=== PATIENT | male | born 1965 | race Caucasian/White ===

== ENCOUNTER 2017-11-24 04:41 | Emergency (ER) | payer MEDICAID ==
[~2017-11-24] VITALS: Ht 188 cm; Wt 113.0 kg
[2017-11-24 04:48] VITALS: BP 152/87
== END 2017-11-24 08:20 | disposition left against medical advice (07) ==
LOC: ER 04:41
DX: Z04.8 Encounter for examination and observation for other specified reasons (principal); Z53.21 Procedure and treatment not carried out due to patient leaving prior to being seen by health care provider

== ENCOUNTER 2019-08-08 03:52 | Emergency (ER) | payer MEDICAID ==
[~2019-08-08] VITALS: Ht 175.3 cm; Wt 113.0 kg
[2019-08-08] MEDS ORDERED: SODIUM CHLORIDE 0.9% 1,000 ML IV ONE (04:25)
[2019-08-08] MEDS ORDERED: LORAZEPAM 2MG/ML CPJ IV ONE (04:30)
[2019-08-08 04:46] LABS: BASOPHILS % 0.4 % (0.0-2.0); EOSINOPHILS % 0.4 % (0.0-5.0); HEMATOCRIT. 40.6 % (42.0-52.0); HEMOGLOBIN. 13.7 g/dL (14.0-18.0); LYMPHOCYTES % 8.1 % (20.0-50.0); MEAN CORPUSCULAR VOLUME 92.3 fL (80.0-94.0); MEAN PLATELET VOLUME 8.2 fl (7.4-10.4); MONOCYTES % 5.6 % (2.0-8.0); NEUTROPHILS % 85.5 % (40.0-76.0); PLATELET 206 x1000/uL (130-400); RED CELL DISTRIBUTION WIDTH 13.6 % (11.6-14.6)
[2019-08-08 04:54] LABS: CHLORIDE 111 mEq/L (98-107)
[2019-08-08 04:59] LABS: ETHANOL BLOOD < 10 mg/dL
[2019-08-08 05:59] VITALS: BP 150/90
[2019-08-08] MEDS ORDERED: LORAZEPAM 1MG TABLET PO ONE (06:00)
== END 2019-08-08 06:31 | disposition left against medical advice (07) ==
LOC: ER 03:52
DX: F41.9 Anxiety disorder, unspecified (principal); F12.10 Cannabis abuse, uncomplicated; F32.9 Major depressive disorder, single episode, unspecified; F15.10 Other stimulant abuse, uncomplicated
CPT/HCPCS: 36415; 80053; 80320; 84484; 85025; 93005; 96374; 99284; J2060; J7030; G0480